=== PATIENT | male | born 1985 | race Caucasian/White ===

== ENCOUNTER 2017-12-03 13:46 | Emergency (ER) | payer SELFPAY ==
[2017-12-03] MEDS: LIDOCAINE 1% (MDV) 10 ML INJ INFIL (16:02)
== END 2017-12-03 16:18 | disposition home or self-care (01) ==
LOC: FTE 13:46
DX: L84 Corns and callosities (principal); L02.511 Cutaneous abscess of right hand
CPT/HCPCS: 99284

== ENCOUNTER 2017-12-04 18:01 | Emergency (ER) | payer SELFPAY, OTHER ==
[2017-12-04] MEDS ORDERED: IBUPROFEN 600 MG TAB PO (21:00)
[2017-12-04] MEDS: ACETAMINOPHEN 325 MG TAB PO (21:07)
[2017-12-04] MEDS ORDERED: HYDROCODONE/APAP (5/325) TAB PO (23:30)
== END 2017-12-04 23:50 | disposition home or self-care (01) ==
LOC: FTE 18:01
DX: M79.89 Other specified soft tissue disorders (principal); Z87.891 Personal history of nicotine dependence
CPT/HCPCS: 73140; 99283